=== PATIENT | female | born 1995 | race Caucasian/White ===

== ENCOUNTER 2021-03-18 18:01 | Emergency (ER) | payer OTHER, SELFPAY ==
[2021-03-18 18:15] VITALS: BP 129/82; PULSE 79; RESP 19; TEMP 37; O2SAT 99; BMI 23.3
[2021-03-18 18:26] VITALS: BP 129/82; PULSE 79; RESP 19; TEMP 37; O2SAT 99
--- NOTE | 2021-03-18 18:30 | HMH.EDUTC ---
[facility] – [place], [place] Disposition Clinical Impression: Tinea manuum UTI (urinary tract infection) Qualifiers: Urinary tract infection type: site unspecified Hematuria presence: with hematuria Qualified Code(s): N39.0 - Urinary tract infection, site not specified Disposition: Home, Self-Care Condition on Discharge: Good Instructions: DI for Urinary Tract Infection (UTI) Additional Instructions: Use the medication as directed. Follow up with your primary care doctor. If your hand is not improving, please follow up with the city manager. I put in a referral, but you will need to call and schedule an appointment. GO TO THE ER FOR ANY WORSENING SYMPTOMS OR CONCERNS Prescriptions: Sulfamethoxazole/Trimethoprim [Bactrim DS tablet] 1 each PO BID 7 Days #14 tab Transmission Status: Received by [id number] Clotrimazole/Betamethasone Dip [Lotrisone cream 15gm tube] 1 applicatio TOPICAL BID #1 tube Transmission Status: Received by [id number] Referrals: Jackie Christopher APRN [Primary Care Provider] - Georgia Hernandez MD [Referring] - Forms: Work/School Release Time of Disposition: 18:47 Medical Decision Making - Medical Records Medical records reviewed: No: I reviewed the patient's medical records. - Abdi Inquiry Pt receiving controlled substance: No Vital Signs: 03/18/21 18:15 03/18/21 18:26 Temperature 98.6 F 98.6 F Temperature Source Oral Pulse Rate 79 Pulse Rate [Right Brachial] 79 Respiratory Rate 19 19 Blood Pressure 129/82 Blood Pressure [Right Arm] 129/82 Blood Pressure Mean [Right Arm] 97 Blood Pressure Source [Right Arm] Automatic Cuff Blood Pressure Position [Right Arm] Sitting 02 Sat by Pulse Oximetry 99 Oxygen Delivery Method Room Air - Lab Data Lab results reviewed: Yes: I reviewed the patient's lab results. Lab Results 03/18/21 18:13: Urine Color Yellow, Urine Appearance Clear, Urine pH 7.0, Ur Specific [place] 1.015, Urine Protein Negative, Urine Glucose (UA) Negative, Urine Ketones Negative, Urine Blood Trace, Urine Nitrate Negative, Urine Bilirubin Negative, Urine Urobilinogen 0.2, Ur Leukocyte Esterase 1+ A Orders (Tests/Meds): ORDERS Category Date Time Status Urine Culture Stat Micro 03/18/21 18:20 Received [facility] [place], [place] HPI - General Stated complaint: rash on hand and foot, Bladder infection Time Seen by Provider: 03/18/21 18:30 - History of Present Illness Provider Complaint: She has had burning while urinating for the past 1 day. She thinks that she has a uti. Also, she has been having a rash of the palm of her left hand for the past 2 weeks. It has spread to her other palm. She states that the rash itches badly. - Related Data Home Medications Medication Instructions Recorded Confirmed adalimumab 40 mg/0.4 mL 40 mg SQ Q14D 07/03/19 12/30/19 subcutaneous pen kit Previous Rx's Medication Instructions Recorded levoFLOXacin [Levaquin 500mg 500 mg PO DAILY #7 tab 12/30/19 tab] bupropion HCl 100 mg tablet 100 mg PO BID #180 tab 01/24/20 Clotrimazole/Betamethasone Dip 1 applicatio TOPICAL BID #1 tube 03/18/21 [Lotrisone cream 15gm tube] Sulfamethoxazole/Trimethoprim 1 each PO BID 7 Days #14 tab 03/18/21 [Bactrim DS tablet] Allergies Allergy/AdvReac Type Severity Reaction Status Date / Time codeine Allergy Intermediate Verified 10/26/19 11:33 [facility] History - Hepatitis A Screen Attestation statement:: This patient has been screened for Hepatitis A risk factors. I have reviewed the patient's past medical history: Yes Other Medical History: Reports: Other Comment: crohn's disease Other Surgeries: Yes: , Dilation and Curettage, Tubal Ligation Amputation: No Fractures: No Comment: wisdom teeth removed. - Social History Smoking Status: Current every day smoker Tobacco Type: cigarettes # Packs/Day (cigarettes): 1 Alcohol Intake: never Alcohol Intake Frequency:: other Substance Use Type: connor
[2021-03-18 18:45] LABS: Apearance,Urine Clear (Clear); Bilirubin,Urine Negative (Negative); Blood, Urine Trace (Negative); Color,Urine Yellow (Yellow); Glucose,Urine (UA) Negative (Negative); Ketones,Urine Negative (Negative); Protein,Urine Negative (Negative); Specific Gravity, Urine 1.015 (1.005-1.030); UTC Leukocyte Esterase,Urine 1+ (Negative); UTC Nitrate,Urine Negative (Negative); Urobilinogen,Urine 0.2 EU/dl (0.2)
== END 2021-03-18 18:55 | disposition home or self-care (01) ==
PROVIDERS: Emergency Provider Nurse Practitioner Family; PCP Nurse Practitioner Family
DX: B35.2 Tinea manuum (principal); N39.0 Urinary tract infection, site not specified; F17.210 Nicotine dependence, cigarettes, uncomplicated
CPT/HCPCS: 81003; 87086; 87088; 87186; 99202; G0463

== ENCOUNTER 2021-03-23 13:11 | Emergency (ER) | payer OTHER, SELFPAY ==
[2021-03-23 14:07] VITALS: BP 117/72; PULSE 101; RESP 17; TEMP 39.4; O2SAT 96; BMI 27.1
--- NOTE | 2021-03-23 14:21 | HMH.EDUTC ---
[facility] [place] Clinical Impression: Pyelonephritis Disposition: Home, Self-Care Condition on Discharge: Good Instructions: DI for Kidney Infection Additional Instructions: Additional instructions for URINARY TRACT INFECTION: Take antibiotic as prescribed, begin tomorrow evening. Tylenol or ibuprofen for fever. See your physician in 2-3 days for follow up. Return immediately if you have an uncontrollable fever, severe back or abdominal pain, inability to urinate, or repetitive vomiting. Prescriptions: Cefdinir [Omnicef 300mg Capsule] 300 mg PO BID #20 cap Transmission Status: Received by [id number] Referrals: Jackie Christopher APRN [Primary Care Provider] - Forms: Work/School Release Time of Disposition: 15:05 Medical Decision Making - Abdi Inquiry Pt receiving controlled substance: No Abdi was queried for this patient: No Vital Signs: 03/23/21 14:07 03/23/21 15:43 03/23/21 18:36 Temperature 103.0 F H 100.3 F H 100.3 F H Temperature Source Oral Oral Pulse Rate 68 Pulse Rate [Left] 101 H 94 H Respiratory Rate 17 16 18 Blood Pressure 109/67 L Blood Pressure [Right Arm] 117/72 114/68 Blood Pressure Mean [Right Arm] 87 83 Blood Pressure Source [Right Arm] Automatic Cuff Blood Pressure Position [Right Arm] Sitting Sitting 02 Sat by Pulse Oximetry 96 98 Oxygen Delivery Method Room Air Room Air Room Air - Lab Data Lab results reviewed: Yes: I reviewed the patient's lab results. Lab Results 03/23/21 14:35: Urine Color Red, Urine Appearance Cloudy, Urine pH 8.0, Ur Specific [place] 1.020, Urine Protein 3+, Urine Glucose (UA) 1+, Urine Ketones Trace, Urine Blood 3+, Urine Nitrate Positive, Urine Bilirubin 2+ A, Urine Urobilinogen 4.0, Ur Leukocyte Esterase 2+ A, Urine RBC Tntc, Urine WBC 10-20, Ur Squamous Epith Cells 10-20, Urine Bacteria 2+ 03/23/21 16:34: Lactate 0.5 L 03/23/21 16:34: WBC 11.8 H, RBC 4.58, Hgb 13.2, Hct 39.0, MCV 85.2, MCH 28.7, MCHC 33.7, RDW 12.8, Plt Count 278, MPV 8.0, Neut % (Auto) 71.3, Lymph % (Auto) 20.1, [place] % (Auto) 7.7, Eos % (Auto) 0.5, Baso % (Auto) 0.3, Neut # (Auto) 8.4 H, Lymph # (Auto) 2.4, [place] # (Auto) 0.9, Eos # (Auto) 0.1, Baso # (Auto) 0.0 03/23/21 16:34: Sodium 134 L, Potassium 3.3 L, Chloride 106, Carbon Dioxide 21 L, Anion Gap 10.3, BUN 7, Creatinine 0.60, Estimated Creat Clear 151, Estimated GFR 121, Est GFR ( Amer) 146, Glucose 109 H, Calcium 9.1, Total Bilirubin 0.5, AST 23, ALT 17, Alkaline Phosphatase 91, Total Protein 8.0, Albumin 4.1, Globulin 3.9 H, Albumin/Globulin Ratio 1.1 Result diagrams: 03/23/21 16:34 03/23/21 16:34 Orders (Tests/Meds): ED MEDICATIONS Discontinued Medications Generic Name Dose Route Start Last Admin Trade Name Freq PRN Reason Stop Dose Admin Acetaminophen 650 mg 03/23/21 14:24 03/23/21 13:40 Acetaminophen 325mg Tab PO 03/23/21 14:25 650 mg ONCE ONE Administration Ceftriaxone Sodium 1 gm 03/23/21 18:09 03/23/21 18:16 Ceftriaxone 1gm Vial IM 03/23/21 18:10 1 gm ONCE ONE Administration Protocol Sodium Chloride 1,000 mls @ 999 mls/hr 03/23/21 16:45 03/23/21 16:41 Sod Chlor 0.9% 1000ml Bag IV 03/23/21 17:45 999 mls/hr .Q1H1M MADDI Administration Ceftriaxone Sodium 1 gm/ 50 mls @ 100 mls/hr 03/23/21 18:06 Sodium Chloride IV 03/23/21 18:35 ONCE ONE Protocol Ibuprofen 800 mg 03/23/21 14:24 03/23/21 13:40 Ibuprofen 400 Mg Tablet PO 03/23/21 14:25 800 mg ONCE ONE Administration Lidocaine HCl 0 ml 03/23/21 18:09 03/23/21 18:16 Lidocaine 1% 5ml Pf Vial IM 03/23/21 18:10 2.1 ml ONCE ONE Administration ORDERS Category Date Time Status Blood Culture Stat Micro 03/23/21 16:34 Received Urine Culture Stat Micro 03/23/21 14:35 Received Medical Decision Narrative: After discussing symptoms with patient advised she was seen recently seen in [facility] for rash and UTI and was told that they had prescribed her an antibiotic
[2021-03-23 15:43] VITALS: BP 114/68; PULSE 94; RESP 16; TEMP 37.9; O2SAT 98; BMI 27.1
[2021-03-23 15:49] LABS: Microscopic, Urine URINE MICROSCOPIC (MICROSCOPIC)
[2021-03-23 15:56] LABS: Appearance,Urine CLOUDY (Clear); Blood, Urine 3+ (Negative); Color,Urine RED (Yellow); Glucose,Urine (UA) 1+ (Negative); Ketones,Urine TRACE (Negative); Leukocyte Esterase,Urine 2+ (Negative); Nitrate,Urine POSITIVE (Negative); Protein,Urine 3+ (Negative)
[2021-03-23 15:57] LABS: Bilirubin,Urine 2+ (Negative)
[2021-03-23 16:02] LABS: Bacteria,Urine 2+ /lpf; RBC,Urine TNTC #/hpf (0-3)
--- NOTE | 2021-03-23 16:25 | HMH.EDGENADL ---
ED Disposition Clinical Impression: Pyelonephritis Disposition: Home, Self-Care Condition on Discharge: Good Instructions: DI for Kidney Infection Additional Instructions: Additional instructions for URINARY TRACT INFECTION: Take antibiotic as prescribed, begin tomorrow evening. Tylenol or ibuprofen for fever. See your physician in 2-3 days for follow up. Return immediately if you have an uncontrollable fever, severe back or abdominal pain, inability to urinate, or repetitive vomiting. Prescriptions: Cefdinir [Omnicef 300mg Capsule] 300 mg PO BID #20 cap Transmission Status: Received by [id number] Referrals: aJckie Christopher APRN [Primary Care Provider] - Forms: Work/School Release - Critical Care Critical Care Time: No Attestation: On 03/23/21, the high probability of a clinically significant, sudden or life threatening deterioration of the following system(s) required my full and direct attention, intervention and personal management. The time I documented below is in addition to time spent performing reported procedures but includes the following listed in this critical care notation. Medical Decision Making - Medical Records Medical records reviewed: Yes: I reviewed the patient's medical records. MR Comment: [facility] and primary care provider visit 03/20/2021. Reviewed urine culture result from urgent treatment center visit, E. coli, pansensitive. It appears that primary care provider discontinued Bactrim that had been prescribed in the urgent treatment center because they thought it was prescribed for her rash and was not necessary. Reviewed emergency department visit from 12/30/2019 which was for urinary tract infection and SIRS. Treated as an outpatient with Levaquin. - Abdi Inquiry Pt receiving controlled substance: No Vital Signs: 03/23/21 14:07 03/23/21 15:43 Temperature 103.0 F H 100.3 F H Temperature Source Oral Oral Pulse Rate [Left] 101 H 94 H Respiratory Rate 17 16 Blood Pressure [Right Arm] 117/72 114/68 Blood Pressure Mean [Right Arm] 87 83 Blood Pressure Source [Right Arm] Automatic Cuff Blood Pressure Position [Right Arm] Sitting Sitting 02 Sat by Pulse Oximetry 96 98 Oxygen Delivery Method Room Air Room Air - Lab Data Lab Results 03/23/21 14:35: Urine Color Red, Urine Appearance Cloudy, Urine pH 8.0, Ur Specific [place] 1.020, Urine Protein 3+, Urine Glucose (UA) 1+, Urine Ketones Trace, Urine Blood 3+, Urine Nitrate Positive, Urine Bilirubin 2+ A, Urine Urobilinogen 4.0, Ur Leukocyte Esterase 2+ A, Urine RBC Tntc, Urine WBC 10-20, Ur Squamous Epith Cells 10-20, Urine Bacteria 2+ 03/23/21 16:34: Lactate 0.5 L 03/23/21 16:34: WBC 11.8 H, RBC 4.58, Hgb 13.2, Hct 39.0, MCV 85.2, MCH 28.7, MCHC 33.7, RDW 12.8, Plt Count 278, MPV 8.0, Neut % (Auto) 71.3, Lymph % (Auto) 20.1, [place] % (Auto) 7.7, Eos % (Auto) 0.5, Baso % (Auto) 0.3, Neut # (Auto) 8.4 H, Lymph # (Auto) 2.4, [place] # (Auto) 0.9, Eos # (Auto) 0.1, Baso # (Auto) 0.0 03/23/21 16:34: Sodium 134 L, Potassium 3.3 L, Chloride 106, Carbon Dioxide 21 L, Anion Gap 10.3, BUN 7, Creatinine 0.60, Estimated Creat Clear 151, Estimated GFR 121, Est GFR ( Amer) 146, Glucose 109 H, Calcium 9.1, Total Bilirubin 0.5, AST 23, ALT 17, Alkaline Phosphatase 91, Total Protein 8.0, Albumin 4.1, Globulin 3.9 H, Albumin/Globulin Ratio 1.1 Result diagrams: 03/23/21 16:34 03/23/21 16:34 Orders (Tests/Meds): ED MEDICATIONS Generic Name Dose Route Start Last Admin Trade Name Freq PRN Reason Stop Dose Admin Sodium Chloride 1,000 mls @ 999 mls/hr 03/23/21 16:45 03/23/21 16:41 Sod Chlor 0.9% 1000ml Bag IV 03/23/21 17:45 999 mls/hr .Q1H1M MADDI Administration Discontinued Medications Generic Name Dose Route Start Last Admin Trade Name Freq PRN Reason Stop Dose Admin Acetaminophen 650 mg 03/23/21 14:24 03/23/21 13:40 Acetaminophen 325mg Tab PO 03/23/21 14:25 650 mg ONCE ONE Administrat
[2021-03-23 16:45] LABS: Basophils % 0.3 % (0.1-2.0); Eosinophils # 0.1 K/mm3 (0.0-0.4); Eosinophils % 0.5 % (0.1-12.0); Hemoglobin 13.2 g/dL (12.2-16.2); Lymphocytes # 2.4 K/mm3 (0.7-4.5); Lymphocytes % 20.1 % (10-50); Mean Corpuscular HGB Conc 33.7 g/dL (31.8-35.4); Mean Corpuscular Hemoglobin 28.7 pg (27.0-31.2); Mean Corpuscular Volume 85.2 fl (81-99); Monocytes # 0.9 K/mm3 (0.1-1.0); Monocytes % 7.7 % (1.7-9.3); Neutrophils # 8.4 K/mm3 (1.8-7.8); Neutrophils % 71.3 % (37.0-80.0); Platelet Count 278 K/mm3 (142-424); Red Blood Count 4.58 M/mm3 (4.20-5.40); Red Cell Distribution Width 12.8 % (11.5-17.5); White Blood Count 11.8 K/mm3 (4.8-10.8)
[2021-03-23 16:51] LABS: Chloride 106 mmol/L (98-107)
[2021-03-23 16:52] LABS: Potassium 3.3 mmoL/L (3.5-5.1); Sodium 134 mmol/L (136-145)
[2021-03-23 16:54] LABS: Alanine Aminotransferase 17 U/L (12-78); Alkaline Phosphatase 91 U/L (38-126); Aspartate Amino Transferase 23 U/L (14-36); Bilirubin,Total 0.5 mg/dl (0.2-1.3); Blood Urea Nitrogen 7 mg/dl (7-17); Creatinine Clearance Estimated 151 mL/min (50-200); Estimated Glomerular Filt Rate 121 ml/min (>60); GFR (African American) 146 ML/MIN (>60)
[2021-03-23 16:55] LABS: Albumin Level 4.1 g/dl (3.5-5.0); Albumin/Globulin Ratio 1.1 (1.1-1.8); Anion Gap 10.3 mEq/L (5-15); Calcium 9.1 mg/dl (8.4-10.2); Carbon Dioxide 21 mmol/L (22.0-30.0); Globulin 3.9 g/dL (1.3-3.2); Glucose 109 mg/dl (74-100); Lactic Acid 0.5 mmol/L (0.7-2.1)
--- NOTE | 2021-03-23 18:10 | PC.NURSE ---
ÁNGELA MCKEON states okay for pt to have rocephin 1g IM versus IV r/t pt IV had already by removed r/t discharge order for pt in.
[2021-03-23 18:36] VITALS: BP 109/67; PULSE 68; RESP 18; TEMP 37.9; O2SAT 100
[2021-03-23 22:28] LABS: Apearance,Urine Clear (Clear); Color,Urine Yellow (Yellow)
[2021-03-23 22:29] LABS: Bilirubin,Urine 3+ (Negative); Blood, Urine 3+ (Negative); Glucose,Urine (UA) 1+ (Negative); Ketones,Urine 1+ (Negative); Protein,Urine Negative (Negative); UTC Leukocyte Esterase,Urine 3+ (Negative); UTC Nitrate,Urine Positive (Negative); Urobilinogen,Urine 2 EU/dl (0.2)
[2021-03-23 22:46] LABS: UTC Strep Screen (Rapid) Negative (Negative)
[2021-03-23 22:47] LABS: UTC Influenza A Antigen Negative (Negative)
[2021-03-23 22:53] LABS: UTC Influenza B Antigen Negative (Negative)
== END 2021-03-23 18:36 | disposition home or self-care (01) ==
LOC: UTC 14:29 → ER 15:04
PROVIDERS: Nurse Practitioner; Emergency Provider Emergency Medicine; PCP Nurse Practitioner Family
DX: N12 Tubulo-interstitial nephritis, not specified as acute or chronic (principal); F17.210 Nicotine dependence, cigarettes, uncomplicated; Z20.822 Contact with and (suspected) exposure to COVID-19
CPT/HCPCS: 80053; 81001; 81003; 83605; 85025; 87040; 87077; 87086; 87804; 87880; 96365; 96372; 99284; U0003

== ENCOUNTER → 2021-07-02 19:35 | Outpatient (CLI) | payer OTHER, SELFPAY ==
[2021-07-02 21:44] LABS: Basophils # 0.1 K/mm3 (0-0.2); Basophils % 1.2 % (0.1-2.0); Eosinophils # 0.2 K/mm3 (0.0-0.4); Eosinophils % 1.6 % (0.1-12.0); Hematocrit 41.7 % (37.0-47.0); Hemoglobin 14.5 g/dL (12.2-16.2); Lymphocytes # 3.5 K/mm3 (0.7-4.5); Lymphocytes % 31.5 % (10-50); Mean Corpuscular HGB Conc 34.8 g/dL (31.8-35.4); Mean Corpuscular Hemoglobin 28.6 pg (27.0-31.2); Mean Corpuscular Volume 82.3 fl (81-99); Mean Platelet Volume 9.2 fl (7.4-10.4); Monocytes # 0.5 K/mm3 (0.1-1.0); Monocytes % 4.6 % (1.7-9.3); Neutrophils # 6.8 K/mm3 (1.8-7.8); Neutrophils % 61.1 % (37.0-80.0); Platelet Count 390 K/mm3 (142-424); Red Blood Count 5.06 M/mm3 (4.20-5.40); Red Cell Distribution Width 13.2 % (11.5-17.5); White Blood Count 11.2 K/mm3 (4.8-10.8)
[2021-07-02 21:45] LABS: Chloride 106 mmol/L (98-107); Potassium 3.4 mmoL/L (3.5-5.1); Sodium 138 mmol/L (136-145)
[2021-07-02 21:48] LABS: Alanine Aminotransferase 23 U/L (12-78); Albumin Level 4.7 g/dl (3.5-5.0); Albumin/Globulin Ratio 1.2 (1.1-1.8); Alkaline Phosphatase 100 U/L (38-126); Anion Gap 12.4 mEq/L (5-15); Aspartate Amino Transferase 31 U/L (14-36); Bilirubin,Total 0.2 mg/dl (0.2-1.3); Blood Urea Nitrogen 8 mg/dl (7-17); Carbon Dioxide 23 mmol/L (22.0-30.0); Estimated Glomerular Filt Rate 148 ml/min (>60); GFR (African American) 179 ML/MIN (>60); Total Protein,Serum 8.7 g/dl (6.3-8.2)
[2021-07-02 21:49] LABS: Calcium 9.5 mg/dl (8.4-10.2); Glucose 98 mg/dl (74-100)
[2021-07-02 22:09] LABS: HCG,Quantitative < 2 mIU/ml (0-5.42)
== END ==
PROVIDERS: PCP Nurse Practitioner Family; Visit Provider Obstetrics & Gynecology
DX: Z01.812 Encounter for preprocedural laboratory examination (principal); Z11.52 Encounter for screening for COVID-19; N93.0 Postcoital and contact bleeding
CPT/HCPCS: 36415; 80053; 84702; 85025; U0003

== ENCOUNTER 2021-07-04 11:56 | Day surgery (SDC) | payer OTHER, SELFPAY ==
[2021-07-04] VITALS (10 sets, daily range): BP systolic 122–130; BP diastolic 74–91; PULSE 77–92; RESP 12–18; TEMP 36.5–43; O2SAT 95–99; BMI 26.2
--- NOTE | 2021-07-04 13:15 | HMH.ANESCL ---
[facility] Anesthesia Checklist - Structural Data Admitted From: Home Planned Operative Procedure/s: d/c hyst, Consent for Planned Operative Procedure(s) Verified: Yes - Additional verifications Anesthesia Reactions: No Hx Blood Transfusions: No Blood Transfusion Reaction: No - Airway Assessment C-Spine Mobility Assessed: Yes TMJ Mobility Assessed: Yes Dentition: Good Dentition - Neurological Assessment Level of Consciousness: Awake, Alert, Appropriate - Anesthesia Plan Anesthesia Risk discussed: Yes Anesthesia Plan: Verified ASA Class: II Anesthesia Type: General [facility] History I have reviewed the patient's past medical history: Yes Medical History: Reports:: MRSA (nasal) Denies:: Cancer, Diabetes Mellitus Type 1, Diabetes Mellitus Type 2, Internal Pacemaker, Seizures *Have you ever received a pneumonia vaccine?: No *Have you received a flu vaccine this season?: No Other Medical History: Reports: Other. Denies: Blood Transfusion Reaction Anesthesia experience/problems:: none Other Surgeries: Yes: , Dilation and Curettage, Tubal Ligation. No: Pacemaker Amputation: No Fractures: No - *Social History Last grade of school completed: High school graduate Smoking Status: Current every day smoker Tobacco Type: cigarettes # Packs/Day (cigarettes): 1 Alcohol Intake: never Alcohol Intake Frequency:: other Substance Use Type: denies use *Occupational Status:: employed Housing: house Household Members: spouse *Travel in the last 8 weeks: None Family Hx:: Heart Attack
--- NOTE | 2021-07-04 14:43 | P.PN_ITS ---
[facility] Anesthesia Record Part I Intake, IV Amount: 1,500 Estimated blood loss (mL): 0 Urine output (mL): 0 Blood Pressure: 127/75 SaO2: 97 Pulse Rate: 85 Respiratory Rate: 12 Temperature: 98.3 F Patient is:: Awake, Stable Stable to PACU at:: 14:40
--- NOTE | 2021-07-04 15:36 | HMH.OPNOTE ---
Date of procedure: 07/04/21 Pre-op Diagnosis:: dysfunctional uterine bleeding heavy menstrual bleeding severe dysmenorrhea Post-op Diagnosis:: same Procedure performed:: D&C Hysteroscopy Novasure Endometrial Ablation Surgeon:: Iveth Trejo MD APPLICATION SUPPORT ADMINISTRATOR:: Alberto Sheppard Anesthesia: GETA Estimated blood loss (mL): 5 Operative findings:: diffuse proliferative endometrium Operative note:: The patient was taken to the OR where general anesthesia was administered without difficulty. She was prepped/draped in the normal sterile fashion in supine position. The cervix was dilated until hysteroscope could be accomodated. The hysteroscope was introduced through the cervix into the uterus and the cavity surveyed. Diffuse, proliferative endometrium was observed throughout the cavity; sharp curettage was performed and the specimen was sent for pathology. The Novasure device was introduced into the uterus. The cavity length was measured at 5cm and width at 3.6cm, and the cavity assessment was successful. The Novasure was deployed and the endometrial ablation was completed in 85 seconds, and without complication. All instruments were removed from her vagina, she was awakened from anesthesia and taken to PACU in stable condition. Condition: stable Disposition: PACU Specimens:: endometrial curettings Complications:: none
--- NOTE | 2021-07-06 11:17 | HMH.ANESII ---
[facility] Anesthesia Record Part II Discharge Time: 14:50 Destination: Surgical Day Care (OP Surgery) PACU nurse assessment reviewed?: Yes Patient Condition:: Good Anesthesia Complications:: None Swallowing reflex intact?: Yes Cyanosis?: No Blood Pressure: 122/76 Pulse Rate: 91 Temperature: 98.2 F Mental Status: Alert & Oriented Pain level:: 2 Nausea and/or vomitting:: None Intake, IV Amount: 50
[2021-07-06 11:18] VITALS: BP 122/76; PULSE 91; TEMP 36.8
== END 2021-07-04 15:38 | disposition home or self-care (01) ==
LOC: OR 11:57
PROVIDERS: PCP Nurse Practitioner Family; Visit Provider Obstetrics & Gynecology
PROC: (CPT 58563; principal; 2021-07-04 13:30)
DX: Z98.51 Tubal ligation status (principal); N92.0 Excessive and frequent menstruation with regular cycle; N93.8 Other specified abnormal uterine and vaginal bleeding; Z86.14 Personal history of Methicillin resistant Staphylococcus aureus infection; Z72.0 Tobacco use; Z82.3 Family history of stroke; Z88.6 Allergy status to analgesic agent; Z79.899 Other long term (current) drug therapy
CPT/HCPCS: 58563; 96374; J2405

== ENCOUNTER 2022-12-07 12:36 | Emergency (ER) | payer OTHER, SELFPAY ==
[2022-12-07 12:36] VITALS: RESP 20; TEMP 37.3; O2SAT 96; BMI 26.5
--- NOTE | 2022-12-07 13:42 | EXP.UTC ---
Discharge Plan Disposition Patient Disposition: Home, Self-Care Condition: Good Prescriptions Prescriptions: New phenazopyridine [Pyridium] 200 mg tablet 200 mg PO Q8H 2 Days Qty: 6 0RF sulfamethoxazole-trimethoprim [Bactrim DS] 800-160 mg Tablet 1 tab PO BID Qty: 14 0RF ondansetron 4 mg Tablet,Disintegrating 4 mg PO Q8H PRN (Reason: Nausea) Qty: 12 0RF No Action prednisone 20 mg tablet 20 mg PO BID Qty: 10 0RF Rx Instructions: administer with food or milk Humira(CF) Pen 40 mg/0.4 mL pen injector kit 40 mg SQ Q14D Dupixent Pen 200 mg/1.14 mL pen injector 200 mg SQ Q2W triamcinolone acetonide 15 GM ointment 15 gm TP BIDL cetirizine 10 MG capsule 10 mg PO DAILY Referrals Follow up/Referrals: Kentrell Hanks MD [Primary Care Provider] - See instructions Activity Restrictions/Add. Instructions Additional Instructions/Restrictions: Drink plenty of fluids. Take tylenol or ibuprofen for pain or fever. Take the medications as directed. Follow up with your regular doctor. GO TO THE ER FOR ANY WORSENING SYMPTOMS The pyridium will make your urine turn orange, this is an expected side effect. It will stain your clothes if it comes into contact with them. We will culture the urine. That will tell what bacteria is causing your infection and which antibiotics will treat it best. Sometimes the first antibiotic we prescribe turns out to not work against different bacteria. So, make sure you follow up within 3 days if you are not getting better. Clinical Impressions Clinical Impression: UTI (urinary tract infection), Low back pain Stand Alone Forms Stand Alone Forms: Work/School Release Instructions Patient Instructions: Urinary Tract Infection, Urine Culture, DI for Urinary Tract Infection (UTI), Phenazopyridine Discharge ED Provider: Thaddeus James [facility] General Stated complaint: lower back pain,right side Time Seen by Provider: 12/07/22 13:42 History of Present Illness Provider Complaint: She c/o right sided lower back pain that radiates around her side toward her groin. She has also had dysuria and urinary frequency. Related Data Home Medications Medication Instructions Recorded Confirmed adalimumab 40 mg/0.4 mL 40 mg SQ Q14D CROHNS 07/03/19 07/18/21 subcutaneous pen kit (Humira(CF) Pen) dupilumab 200 mg/1.14 mL 200 mg SQ Q2W exzema 05/23/21 07/18/21 subcutaneous pen injector (Dupixent) cetirizine 10 mg capsule 10 mg PO DAILY Allergy symptoms 07/04/21 07/18/21 triamcinolone acetonide 0.1 % 15 gm TP BIDL eczema 07/04/21 07/18/21 topical ointment Previous Rx's Medication Instructions Recorded prednisone 20 mg tablet 20 mg PO BID #10 tabs 07/18/21 ondansetron 4 mg disintegrating 4 mg PO Q8H PRN Nausea #12 tabs 12/07/22 tablet phenazopyridine 200 mg tablet 200 mg PO Q8H 2 days #6 tabs 12/07/22 (Pyridium) sulfamethoxazole 800 1 tab PO BID #14 tabs 12/07/22 mg-trimethoprim 160 mg tablet (Bactrim DS) Allergies Allergy/AdvReac Type Severity Reaction Status Date / Time codeine Allergy Intermediate Verified 12/07/22 14:08 [facility] Disclaimer: The information contained in this section may have been updated after the patient was seen, as this information can be updated by other users. Medical History Crohns disease Enlarged thyroid gland Obesity Social History Smoking Status: Current every day smoker tobacco type: cigarettes packs per day: 1 second hand exposure: No alcohol intake: never substance use type: denies use current occupational status: employed Travel in the last 8 weeks: None household members: spouse housing: house current occupation: [employer] caffeine: Yes ROS Obtained: Yes All systems reviewed & no additional complaints except as documented Constitutio
[2022-12-07 14:00] LABS: Apearance,Urine Clear (Clear); Color,Urine Yellow (Yellow); PH,Urine 6.5 (5.0-8.5); Specific Gravity, Urine 1.015 (1.005-1.030)
[2022-12-07 14:01] LABS: Bilirubin,Urine Negative (Negative); Blood, Urine Trace (Negative); Glucose,Urine (UA) Negative (Negative); Ketones,Urine Negative (Negative); Protein,Urine Negative (Negative); UTC Leukocyte Esterase,Urine Negative (Negative); UTC Nitrate,Urine Negative (Negative); Urobilinogen,Urine 0.2 EU/dl (0.2)
[2022-12-07 14:41] VITALS: BP 143/95; PULSE 86; RESP 20; TEMP 37.3; O2SAT 96
== END 2022-12-07 14:20 | disposition home or self-care (01) ==
PROVIDERS: Emergency Provider Nurse Practitioner Family; PCP Emergency Medicine
DX: N39.0 Urinary tract infection, site not specified (principal)
CPT/HCPCS: 81003; 87086; 99212; 99213; G0463

== ENCOUNTER → 2023-02-22 11:50 | Outpatient (CLI) | payer OTHER, SELFPAY ==
[2023-02-22 15:49] LABS: Basophils # 0.1 K/mm3 (0-0.2); Basophils % 0.7 % (0.1-2.0); Eosinophils # 0.2 K/mm3 (0.0-0.4); Eosinophils % 2.2 % (0.1-12.0); Hematocrit 43.2 % (37.0-47.0); Hemoglobin 14.5 g/dL (12.2-16.2); Lymphocytes # 3.6 K/mm3 (0.7-4.5); Lymphocytes % 42.7 % (10-50); Mean Corpuscular HGB Conc 33.5 g/dL (31.8-35.4); Mean Corpuscular Hemoglobin 29.7 pg (27.0-31.2); Mean Corpuscular Volume 88.7 fl (81-99); Mean Platelet Volume 9.1 fl (7.4-10.4); Monocytes # 0.5 K/mm3 (0.1-1.0); Monocytes % 6.2 % (1.7-9.3); Neutrophils # 4.1 K/mm3 (1.8-7.8); Neutrophils % 48.4 % (37.0-80.0); Platelet Count 384 K/mm3 (142-424); Red Blood Count 4.87 M/mm3 (4.20-5.40); Red Cell Distribution Width 13.3 % (11.5-17.5); White Blood Count 8.5 K/mm3 (4.8-10.8)
[2023-02-22 16:14] LABS: Alanine Aminotransferase 25 U/L (12-78); Albumin Level 4.3 g/dl (3.5-5.0); Albumin/Globulin Ratio 1.2 (1.1-1.8); Alkaline Phosphatase 83 U/L (38-126); Anion Gap 7.9 mEq/L (5-15); Aspartate Amino Transferase 32 U/L (14-36); Bilirubin,Total 0.4 mg/dl (0.2-1.3); Blood Urea Nitrogen 5 mg/dl (7-17); Carbon Dioxide 25 mmol/L (22.0-30.0); Chloride 107 mmol/L (98-107); Chol/HDL Ratio 6.4 (1-3.5); Cholesterol 243 mg/dl (140-200); Estimated Glomerular Filt Rate 147 ml/min (>60); GFR (African American) 178 ML/MIN (>60); Globulin 3.6 g/dL (1.3-3.2); Glucose 82 mg/dl (74-100); HDL Cholesterol 38 mg/dl (40-60); Potassium 3.9 mmoL/L (3.5-5.1); Sodium 136 mmol/L (136-145); Total Protein,Serum 7.9 g/dl (6.3-8.2); Triglycerides 220 mg/dl (30-150); VLDL Cholesterol 44 mg/dL (0-40)
[2023-02-22 16:47] LABS: Thyroid Stimulating Hormone 1.07 uIU/mL (0.465-4.68)
== END ==
PROVIDERS: PCP Nurse Practitioner Family; Visit Provider Nurse Practitioner Family
DX: F32.A Depression, unspecified (principal); R53.83 Other fatigue
CPT/HCPCS: 80053; 80061; 84443; 85025

== ENCOUNTER → 2023-04-28 12:15 | Outpatient (CLI) | payer OTHER, SELFPAY ==
--- NOTE | 2023-04-28 12:17 | XR_ITS ---
FINAL REPORT CLINICAL HISTORY: elevated left hallux. patient states doctor asked her to raise her big toe for the exam. pain and swelling under big toe nail. FINDINGS: LEFT FOOT: Three views of the left foot were obtained. There is no acute fracture or dislocation. The joint spaces are intact. There is no soft tissue abnormality. IMPRESSION: No acute bony abnormality. Reviewed, Interpreted and Dictated by Jason Watters III, MD Transcribed by Jessica Santos Authenticated and [facility]
== END ==
PROVIDERS: PCP Emergency Medicine; Visit Provider Podiatrist
DX: M79.672 Pain in left foot (principal); L60.8 Other nail disorders
CPT/HCPCS: 73630

== ENCOUNTER 2024-04-07 12:53 | Outpatient (CLI) | payer OTHER, SELFPAY ==
--- NOTE | 2024-04-07 12:53 | US_ITS ---
PROCEDURE: US TRANSVAGINAL CLINICAL INDICATION: Bleeding s/p endometrial ablation COMPARISON: US US TRANSVAGINAL from 11/04/2019 FINDINGS: Transvaginal sonographic images of the pelvis were obtained. UTERUS: 6.1cm x 4.2cmx 2.7 cm with a combined endometrial thickness of 4.1mm. There is a nabothian cyst in the cervix measuring 1.0 cm. There is fluid in the endometrium and upper cervix. The uterus appears arcuate with a widened endometrial cavity. LEFT OVARY: 2.8 cmx1.5 cmx2.2cm with a volume of 5ml. There are multiple small follicles in the left ovary. There appears to be a corpus luteum in the left ovary. RIGHT OVARY: 2.7 cmx 2.1cmx2.2cm with a volume of 6.4ml. There are several small follicles in the right ovary. The largest measures 0.6 cm. Both ovaries are seen and appear normal. Doppler flow to both ovaries are seen. There is no fluid in the cul-de-sac. IMPRESSION: 1. Anteverted uterus with an arcuate shape. There is a widened endometrium at the fundus. 2. There is fluid in the endometrium at the fundus and a small amount of fluid in the upper cervix. 3. Both ovaries are seen and appear normal. There are small follicles on each ovary. 4. No fluid in the cul-de-sac. Dictated by: Jacob Brooke MD 04/08/2024 08:57 Jacob Brooke MD in OV 04/08/2024 08:57
== END 2024-04-07 23:59 | disposition home or self-care (01) ==
LOC: RAD 12:53
PROVIDERS: PCP Obstetrics & Gynecology; Visit Provider Obstetrics & Gynecology
DX: N92.0 Excessive and frequent menstruation with regular cycle (principal); N93.8 Other specified abnormal uterine and vaginal bleeding; Z98.890 Other specified postprocedural states
CPT/HCPCS: 76830

== ENCOUNTER 2024-04-12 11:36 | Emergency (ER) | payer OTHER, SELFPAY ==
[2024-04-12 12:50] VITALS: BP 123/79; PULSE 74; RESP 20; TEMP 36.8; O2SAT 99; BMI 28.7
--- NOTE | 2024-04-12 12:52 | XR_ITS ---
FINAL REPORT CLINICAL HISTORY: FEELS LIKE SOMETHING IS STUCK IN THROAT FINDINGS: NECK SOFT TISSUE AP and lateral views of the neck were obtained using soft tissue technique. The airway is patent. There is no prevertebral soft tissue edema. Vertebrae are normal height. Disc bases are preserved. No radiopaque foreign body is identified. IMPRESSION: No acute process. Reviewed, Interpreted and Dictated by Thomas Cuello MD Transcribed by Breann Hung Authenticated and [facility]
--- NOTE | 2024-04-12 13:38 | ED_ITS ---
Discharge Plan Disposition Patient Disposition: Home, Self-Care Condition: Good Prescriptions Prescriptions: No Action sertraline 50 mg tablet 50 mg PO DAILY Qty: 30 1RF Dupixent Syringe 300 mg/2 mL syringe 300 mg SQ Q2W Humira(CF) Pen 40 mg/0.4 mL pen injector kit 40 mg SQ Q14D fluconazole 150 mg tablet 150 mg PO Q3D 0 Days Qty: 2 0RF Rx Instructions: may repeat second dose 72 hrs after first dose if symptoms persist amoxicillin 875 mg tablet 875 mg PO BID 10 Days Qty: 20 0RF Referrals Follow up/Referrals: Provider,Referral, MD [Primary Care Provider] - See instructions Activity Restrictions/Add. Instructions Additional Instructions/Restrictions: Gargle warm salt water may help with throat irritation Call and make appointment with your Family Doctor and GI Doctor Make sure to drink plenty of fluids Straight to the ER if any life threatening symptoms Clinical Impressions Clinical Impression: Throat irritation Instructions Patient Instructions: Sore Throat Discharge ED Provider: Lona Emanuel [facility] General Stated complaint: sore throat Mode of Arrival: Ambulatory Source of Information: Patient Limitations: No Limitations Time Seen by Provider: 04/12/24 13:05 Description of Symptoms (Recalled from Triage Doc. by RN): PATIENT STATES SHE WAS EATING A HAMBURGER WITH LETTUCE LAST NIGHT AND FEELS LIKE SOMETHING IS STUCK IN HER THROAT. PATIENT DENIES SOA AND STATES SHE HAS BEEN EATING AND DRINKING WITHOUT DIFFICULTIES HEENT Symptoms (Recalled from RN notes): Yes Resp Symptoms (Recalled from RN notes): No Skin Symptoms (Recalled from RN notes): No MS Symptoms (Recalled from RN notes): No Functional Status (Recalled from RN notes): WNL History of Present Illness Provider Complaint: Patient states that she was eating a cheese burger last night with lettuce on it when she got choked and feels like either a piece of lettuce is stuck in her throat or may have scratched her throat causing it to feel like something is in there State that she hasnt had any issues with breathing, eating or drinking but wanted to get it looked at Related Data Home Medications Medication Instructions Recorded Confirmed adalimumab 40 mg/0.4 mL 40 mg SQ Q14D CROHNS 07/03/19 04/03/24 subcutaneous pen kit (Humira(CF) Pen) dupilumab 300 mg/2 mL subcutaneous 300 mg SQ Q2W 04/03/24 04/03/24 syringe ([employer]) Previous Rx's Medication Instructions Recorded sertraline 50 mg tablet 50 mg PO DAILY #30 tabs 02/22/23 amoxicillin 875 mg tablet 875 mg PO BID 10 days #20 tabs 04/03/24 fluconazole 150 mg tablet 150 mg PO Q3D 2 doses #2 tabs 04/03/24 Allergies Allergy/AdvReac Type Severity Reaction Status Date / Time codeine Allergy Intermediate Verified 04/03/24 15:40 Worker's Comp Is this a Worker's Comp case?: [facility] Dis[facility]: The information contained in this section may have been updated after the patient was seen, as this information can be updated by other users. Medical History Abnormal uterine bleeding Eczema Crohns disease Obesity Enlarged thyroid gland Surgical History History of D&C History of section x4 History of tubal ligation History of endometrial ablation Family History Other No significant family history Social History Smoking Status: Current every day smoker tobacco type: cigarettes packs per day: 1 second hand exposure: No alcohol intake: never substance use type: denies use current occupational status: employed Travel in the last 8 weeks: None household members: spouse housing: house current occupation: [employer] caffeine: Yes ROS Obtained: Yes All systems reviewed & no additional complaints except as documented and Yes Systems reviewed as appropriate & no additional complaints except as documented Constitutional Constitutional: Reports system reviewed and no additional complaints, except as documented and Reports as per HPI ENT Ears, Nose, Mouth, and Throat: Reports system reviewed and no additional complaints, except as documented, Reports as per HPI and Reports other (scratchy feeling like something may be in her neck) Cardiovascular Cardiovascular: Reports system reviewed and no additional complaints, except as documented and Reports as per HPI Respiratory Respiratory: Reports system reviewed and no additional complaints, except as documented, Reports as per HPI and Denies shortness of breath Gastrointestinal Gastrointestingal: Reports system reviewed and no additional complaints, except as documented and as per HPI; Denies abdominal pain or belching Physical Exam General General appearance: alert and in no apparent distress ENT ENT exam: Present mucous membranes moist Expanded ENT Exam Nose exam: Absent sinus tenderness Throat exam: Present normal inspection Chest Chest inspection: Present normal inspection and symmetric chest wall rise Respiratory Respiratory exam: Present normal lung sounds bilaterally; Absent respiratory distress or wheezes Cardiovascular Cardiovascular exam: Present regular rate, normal rhythm and normal heart sounds Abdominal Exam Abdominal exam: Present soft and normal bowel sounds; Absent distention or tenderness Neurological Exam Neurological exam: Present alert, oriented X3 and normal gait Medical Decision Making Abdi Inquiry Pt receiving controlled substance: No Abdi was queried for this patient: No Vital Signs: 04/12/24 12:50 Temperature 98.2 F Temperature Source Oral Pulse Rate [Left Brachial] 74 Respiratory Rate 20 Blood Pressure [Left Arm] 123/79 Blood Pressure Mean [Left Arm] 93 Blood Pressure Source [Left Arm] Automatic Cuff Blood Pressure Position [Left Arm] Sitting 02 Sat by Pulse Oximetry 99 Oxygen Delivery Method Room Air Orders (Tests/Meds): ORDERS Category Date Time Status XR soft tissue neck Stat Exams 04/12/24 12:52 Taken Radiology Data #1: Image(s): Other (soft tissue of neck) Image Reviewed: Yes I have reviewed radiologist's interpretation IMPRESSION: No acute process. Medical Decision Narrative: Patient drink diet dr pepper and eat some of a nutragrain bar without difficulty
[2024-04-12 14:25] VITALS: BP 123/79; PULSE 74; RESP 20; TEMP 36.8; O2SAT 99
== END 2024-04-12 14:33 | disposition home or self-care (01) ==
PROVIDERS: Emergency Provider Nurse Practitioner
DX: R09.A2 Foreign body sensation, throat (principal)
CPT/HCPCS: 70360; 99212; 99214; G0463

== ENCOUNTER 2025-06-06 11:02 | Outpatient (CLI) | payer OTHER, SELFPAY ==
--- OUTSIDE RECORDS SUMMARY | 2025-06-06 11:05 | XMS_ITS | Clinical Summary ---
Author Organization Healthcare Address [address] [place] [address] Care Team Providers Care Finance Specialist Name Role Phone Unavailable Primary Care Provider Unavailabl e Allergies Active Allergy Reactions Criticality Noted Date Comments Codeine Unknown - Patient st ates they do not know rxn details Low 10/24/2024 Social History Tobacco Use Types Packs/Day Years Used Date Smoking Tobacco: Never Assessed Comments Unknown Sex and Gender Information Value Date Recorded Sex Assigned at Not on file Legal Sex Female 6:28 PM EDT Gender Identity Not on file Sexual Orientation Not on file Last Filed Vital Signs Vital Sign Reading Time Taken Comments Blood Pressure - - Pulse - - Temperature - - Respiratory Rate - - Oxygen Saturation - - Inhaled Oxygen Concentration - - Weight 65.8 kg (145 lb) 07/05/2014 2:17 PM EDT Height 154.9 cm (5' 1 ) 07/05/2014 2:17 PM EDT Body Mass Index 27.4 07/05/2014 2:17 PM EDT Plan of Treatment Not on file
[2025-06-06 11:28] LABS: Hematocrit 40.1 % (37.0-47.0); Hemoglobin 13.4 g/dL (12.2-16.2); Immature Granulocytes % 0.2 %; Mean Corpuscular HGB Conc 33.4 g/dL (31.8-35.4); Mean Corpuscular Hemoglobin 28.3 pg (27.0-31.2); Mean Corpuscular Volume 84.8 fl (81-99); Nucleated Red Blood Cells % 0 %; Platelet Count 424 K/mm3 (142-424); Red Blood Count 4.73 M/mm3 (4.20-5.40); Red Cell Distribution Width-SD 37.8 fL; White Blood Count 9.8 K/mm3 (4.8-10.8)
[2025-06-06 11:57] LABS: Chloride 108 mmol/L (98-107)
[2025-06-06 11:58] LABS: Albumin Level 3.8 g/dl (3.5-5.0); Potassium 4.1 mmoL/L (3.5-5.1); Sodium 134 mmol/L (136-145)
[2025-06-06 12:00] LABS: Alanine Aminotransferase 24 U/L (12-78); Anion Gap 7.1 mEq/L (5-15); Aspartate Amino Transferase 29 U/L (14-36); Blood Urea Nitrogen 4 mg/dl (7-17); Carbon Dioxide 23 mmol/L (22.0-30.0); Creatinine,Serum 0.50 mg/dl (0.52-1.04); Estimated Glomerular Filt Rate 144 ml/min (>60); GFR (African American) 174 ML/MIN (>60)
[2025-06-06 12:01] LABS: Albumin/Globulin Ratio 1.0 (1.1-1.8); Alkaline Phosphatase 119 U/L (38-126); Bilirubin,Total 0.7 mg/dl (0.2-1.3); Calcium 9.3 mg/dl (8.4-10.2); Globulin 3.8 g/dL (1.3-3.2); Glucose 99 mg/dl (74-100); Total Protein,Serum 7.6 g/dl (6.3-8.2)
[2025-06-06 12:29] LABS: Thyroid Stimulating Hormone 0.78 uIU/mL (0.465-4.68)
== END 2025-06-06 23:59 | disposition home or self-care (01) ==
LOC: LAB 11:02
PROVIDERS: PCP Family Medicine; Visit Provider Family Medicine
DX: F32.A Depression, unspecified (principal); Z11.1 Encounter for screening for respiratory tuberculosis; F41.9 Anxiety disorder, unspecified; E66.09 Other obesity due to excess calories
CPT/HCPCS: 36415; 80053; 84443; 85025; 86480